=== PATIENT | female | born 1980 | race Caucasian/White ===

== ENCOUNTER 2023-09-05 06:32 | Day surgery (SDC) | payer BC, MEDICARE ==
[~2023-09-05 06:32] MED LIST: Scopalamine 1mg/3day Transdermal Patch TOP ONE; Sodium Chloride 0.9% 10 ML Syringe FLUSH PRN; Sodium Chloride 0.9% 2.5 ML Syringe FLUSH PRN; Sodium Chloride 0.9% 20 ML SDV IV PRN
[2023-09-05] MEDS ORDERED: Ondansetron 4 MG/2 ML SDV ONE ×2 (06:52)
[2023-09-05] MEDS ORDERED: Scopalamine 1mg/3day Transdermal Patch ONE (06:52)
[2023-09-05] MEDS ORDERED: Water For Injection, Sterile 20 ML ONE (06:52)
[2023-09-05] MEDS ORDERED: dexmedeTOMIDine HCl 200 MCG/2 ML SDV ONE (06:52)
[2023-09-05 06:59] LABS: HEMATOCRIT 38.6 % (37.0-47.0); HEMOGLOBIN 12.2 g/dL (12.0-16.0); MEAN CORPUSCULAR HEMOGLOBIN 25.5 pg (28.0-32.0); MEAN CORPUSCULAR HGB CONC 31.6 g/dL (32.0-36.0); MEAN CORPUSCULAR VOLUME 80.6 fL (83.0-99.0); MEAN PLATELET VOLUME 9.3 fL (9.4-12.3); PLATELET COUNT,PLT 355 K/uL (150-400); RED BLOOD CELL COUNT 4.79 M/uL (4.10-5.30); WHITE BLOOD CELL COUNT,WBC 9.41 K/uL (3.9-11.3)
[2023-09-05] MEDS ORDERED: propofoL 100 ML ONE (07:00)
[2023-09-05] MEDS ORDERED: Albuterol 0.083% 2.5 MG/3 ML Neb Soln NEB PRN (07:07)
[2023-09-05] MEDS ORDERED: HYDROmorphone 1 MG/ML Syringe IVPUSH PRN (07:07)
[2023-09-05] MEDS ORDERED: Naloxone 0.4 MG/ML SDV IVPUSH PRN (07:07)
[2023-09-05] MEDS ORDERED: Ondansetron 4 MG/2 ML SDV IVPUSH PRN (07:07)
[2023-09-05] MEDS ORDERED: Morphine 2 MG/ML SYRINGE IVPUSH PRN (07:07)
[2023-09-05] MEDS ORDERED: Metoclopramide 10 MG/2 ML SDV IVPUSH PRN (07:07)
[2023-09-05] MEDS ORDERED: droPERidol 5 MG/2 ML SDV IVPUSH PRN (07:07)
[2023-09-05] MEDS ORDERED: fentaNYL 50 MCG/ML SDV IVPUSH PRN (07:07)
[2023-09-05] MEDS ORDERED: Morphine 10 MG/ML SDV ONE (07:11)
[2023-09-05] MEDS ORDERED: Lidocaine 2% 5 ML SDV ONE (07:11)
[2023-09-05] MEDS ORDERED: fentaNYL 100 MCG/2 ML SDV ONE (07:11)
[2023-09-05] MEDS ORDERED: Dexamethasone 4 MG/ML 5 ML MDV ONE (07:12)
[2023-09-05] MEDS ORDERED: Rocuronium Bromide 50 MG/5 ML Syringe ONE ×2 (07:12→07:19)
[2023-09-05] MEDS ORDERED: Sugammadex Sodium 200 MG/2 ML VIAL IV ONE (07:12)
[2023-09-05] MEDS ORDERED: Ketorolac 30 MG/ML SDV ONE (07:19)
[2023-09-05] MEDS: Lactated Ringers 1,000 ML IV SCH (07:54)
[2023-09-05] MEDS ORDERED: Glycopyrrolate 0.2 MG/ML SDV ONE (08:26)
[2023-09-05] MEDS: Clindamycin Phosphate in D5W 300 MG in Premix Bag 1 BAG IV ONE (09:06)
[2023-09-05] MEDS: Clindamycin Phosphate in D5W 600 MG in Premix Bag 1 BAG IV ONE (09:27)
== END 2023-09-05 10:05 | disposition home or self-care (01) ==
LOC: MW.SDS 06:32
PROVIDERS: ATTEND Obstetrics & Gynecology
DX: N85.8 Other specified noninflammatory disorders of uterus (principal); N93.9 Abnormal uterine and vaginal bleeding, unspecified; I10 Essential (primary) hypertension; J45.909 Unspecified asthma, uncomplicated; Z79.899 Other long term (current) drug therapy; Z88.0 Allergy status to penicillin
CPT/HCPCS: 36415; 58558; 81025; 85027; A9270; C1729; J0131; J0736; J1100; J1885; J2270; J2704; J3010; J3490; J7120; 00952; J2405